=== PATIENT | female | born 1995 | race Caucasian/White ===

== ENCOUNTER 2020-05-28 12:08 | Emergency (ER) | payer OTHER ==
[~2020-05-28] VITALS: Ht 157.5 cm; Wt 74.8 kg
[~2020-05-28 12:08] MED LIST: IBU600 M1 PO
[2020-05-28 12:19] VITALS: Ht 157.5 cm; Wt 74.8 kg
[2020-05-28 13:31] VITALS: BP 109/81
== END 2020-05-28 13:32 | disposition home or self-care (01) ==
LOC: ED 12:08
DX: R10.11 Right upper quadrant pain (principal); R11.2 Nausea with vomiting, unspecified
CPT/HCPCS: J1885